=== PATIENT | female | born 1995 | race African-American/Black ===

== ENCOUNTER 2017-01-13 23:31 | Observation (INO) | payer SELFPAY ==
[2017-01-13 23:34] VITALS: BP 127/73
== END 2017-01-14 01:45 | disposition home or self-care (01) ==
LOC: ER 01-14 00:01 → 3 SO LND 01-14 00:02
PROVIDERS: ADMIT Specialist; ATTEND Specialist
DX: O26.893 Other specified pregnancy related conditions, third trimester (principal); R07.9 Chest pain, unspecified; M25.512 Pain in left shoulder; M79.602 Pain in left arm; O62.9 Abnormality of forces of labor, unspecified; Z3A.28 28 weeks gestation of pregnancy
CPT/HCPCS: G0378; G0379

== ENCOUNTER 2017-03-09 04:17 | Inpatient (IN) | payer OTHER ==
[~2017-03-09] VITALS: Ht 165.1 cm; Wt 100.2 kg
[2017-03-09 04:39] LABS: BILIRUBIN,URINE NEGATIVE (NEG); GLUCOSE,URINE NEGATIVE (NEG); NITRITE,URINE NEGATIVE (NEG); PROTEIN,URINE NEGATIVE (NEG-TRACE)
[2017-03-09] MEDS: IV RINGERS,LACTATED 1000ML 1,000 ML IV SCH ×4 (04:43→09:45)
[2017-03-09 04:45] LABS: BARBITURATES NEG (NEG); BENZODIAZEPINES NEG (NEG); CANNABINOIDS NEG (NEG); COCAINE NEG (NEG); METHADONE NEG (NEG); OPIATES NEG (NEG); PHENCYCLIDINE NEG (NEG)
[2017-03-09] MEDS ORDERED: ONDANSETRON PF 4 MG/2 ML VIAL. IV PRN ×2 (04:45→05:45)
[2017-03-09] MEDS ORDERED: fentaNYL PF VIAL 100 MCG/2 ML VIAL IV PRN (04:45)
[2017-03-09] MEDS ORDERED: TERBUTALINE 1 MG/ML VIAL. SQ PRN (04:45)
[2017-03-09] MEDS ORDERED: LIDOCAINE 1% PF 30 ML VIAL. INJ PRN (04:45)
[2017-03-09] MEDS ORDERED: OXYTOCIN 30 UNIT/500 ML PREMIX 500 ML IV PRN ×2 (04:45→11:00)
[2017-03-09] MEDS ORDERED: 0.9 % SODIUM CHLORIDE 10 ML DISP.SYRIN. IV PRN ×2 (04:45→11:00)
[2017-03-09 04:57] LABS: RBC,URINE 0 /HPF (0-2); WBC,URINE OCC /HPF (0-4)
[2017-03-09 04:58] LABS: BACTERIA,URINE FEW /HPF (0-FEW); SQUAMOUS EPITHELIAL CELL,UR FEW /LPF
[2017-03-09 05:21] VITALS: BP 137/67
[2017-03-09 05:28] LABS: HEMATOCRIT 34.2 % (36.0-47.0); HEMOGLOBIN 11.1 g/dL (12.0-15.5); RED BLOOD COUNT 3.79 x10^6/uL (3.50-5.40); WHITE BLOOD COUNT 9.1 x10^3/uL (4.0-11.0)
[2017-03-09] MEDS ORDERED: L&D EPIDURAL CASSETTE 100 ML EP PRN (05:45)
[2017-03-09] MEDS ORDERED: ROPIVacaine 0.2% PF 10 ML VIAL. EPI ONE (05:45)
[2017-03-09] MEDS ORDERED: ePHEDrine PF IN SALINE 50 MG/5 ML DISP.SYRIN IV PRN (05:45)
[2017-03-09] MEDS ORDERED: NALOXONE 0.4 MG/ML VIAL. IV PRN (05:45)
[2017-03-09] MEDS ORDERED: fentaNYL PF VIAL 100 MCG/2 ML VIAL EPI ONE (05:45)
[2017-03-09 05:46] LABS: CALCIUM 8.8 mg/dL (8.5-10.1); CREATININE 0.5 mg/dL (0.6-1.0); GFR 186.7; POTASSIUM 3.9 mmol/L (3.5-5.1)
[2017-03-09 05:49] LABS: ALBUMIN 2.5 g/dL (3.4-5.0); ALBUMIN/GLOBULIN RATIO 0.6 (1.0-1.7); TOTAL BILIRUBIN 0.3 mg/dL (0.2-1.0); TOTAL PROTEIN 6.7 g/dL (6.4-8.2)
[2017-03-09] MEDS ORDERED: L&D EPIDURAL CASSETTE 100 ML EP ONE (05:49)
[2017-03-09] MEDS ORDERED: ROPIVacaine 0.2% IN 0.9%NACL PF 40 MG/20 ML DISP.SYRIN. ONE ×4 (05:50→09:05)
[2017-03-09] MEDS ORDERED: diphenhydrAMINE HCL 25 MG CAPSULE PO PRN (11:00)
[2017-03-09] MEDS ORDERED: ZOLPIDEM 5 MG TABLET. PO PRN (11:00)
[2017-03-09] MEDS ORDERED: PHENYLEPH/MINERAL OIL/PETROLAT RECTAL OINTMENT 28GM TUBE. RC PRN (11:00)
[2017-03-09] MEDS ORDERED: MAGNESIUM HYDROXIDE 2,400 MG/30 ML ORAL.SUSP. PO PRN (11:00)
[2017-03-09] MEDS ORDERED: HYDROcodone/APAP 5/325MG 1 TAB TABLET PO PRN (11:00)
[2017-03-09] MEDS ORDERED: HYDROCORTISONE 1% TOPICAL OINTMENT 30GM TUBE. TP PRN (11:00)
[2017-03-09] MEDS ORDERED: MAG HYDROX/ALUMINUM HYD/SIMETH 30 ML ORAL.SUSP PO PRN (11:00)
[2017-03-09] MEDS ORDERED: SIMETHICONE 80 MG TAB.CHEW PO PRN (11:00)
[2017-03-09] MEDS ORDERED: BENZOCAINE 20% TOPICAL AEROSOL SPRAY 57GM CAN. TP PRN (11:00)
[2017-03-09] MEDS ORDERED: ACETAMINOPHEN 325 MG TABLET. PO PRN (11:00)
--- NOTE | 2017-03-09 11:00 | PDOC ---
VAGINAL DELIVERY DATE DATE: 03/09/17 TIME: 10:58 : 2 Para: 1 EDC: Mar 21, 2017 VAGINAL DELIVERY: VTX PLACENTA: Spontaneous SEX: Male WEIGHT 7/10 Nuchal Cord: No Amniotic Fluid: Clear PAIN: Epidural EPISIOTOMY: No EBL 300cc COMPLICATIONS None CONDITION Stable Signs of Intrauterine Infectio: None Shoulder Dystocia: No DIAGNOSIS TIUP del Problems: REG ATKINS MD Mar 09, 2017 11:00
[2017-03-09] MEDS: IBUPROFEN 800 MG TABLET. PO SCH (13:24)
[2017-03-09] MEDS ORDERED: FERROUS SULFATE 325 MG TABLET. PO SCH (17:00)
[2017-03-09 17:16] VITALS: BP 104/56
[2017-03-09] MEDS: IBUPROFEN 800 MG TABLET. PO PRN (20:03)
[2017-03-09 21:15] VITALS: BP 128/70
[2017-03-10 01:15] VITALS: BP 119/63
[2017-03-10] MEDS: IBUPROFEN 800 MG TABLET. PO PRN (02:26)
[2017-03-10 06:15] VITALS: BP 106/55
[2017-03-10 09:23] LABS: RPR REFLEX Negative (Non Reactive)
[2017-03-10] MEDS: IBUPROFEN 800 MG TABLET. PO SCH ×2 (10:17→20:00)
[2017-03-10 10:25] VITALS: BP 125/70
--- NOTE | 2017-03-10 13:35 | PDOC ---
OB Progress Note Date of Service 03/10/17 Time of Evaluation 1330 Notes Pt. feeling well. No complaints. Lochia minimal. Pain controlled. Lab Laboratory Tests Test 03/09/17 04:30 03/09/17 05:05 03/10/17 06:15 Urine Collection Type Unknown Urine Color Yellow Urine Clarity Clear Urine pH 7.0 Urine Specific [place] 1.015 Urine Protein Negative mg/dL (NEG-TRACE) Urine Glucose (UA) Negative mg/dL (NEG) Urine Ketones (Stick) Negative mg/dL (NEG) Urine Blood Negative (NEG) Urine Nitrite Negative (NEG) Urine Bilirubin Negative (NEG) Urine Urobilinogen Dipstick 1.0 mg/dL (0.2 mg/dL) Urine Leukocyte Esterase Negative (NEG) Urine RBC 0 /HPF (0-2) Urine WBC Occ /HPF (0-4) Urine Squamous Epithelial Cells Few /LPF Urine Bacteria Few /HPF (0-FEW) Urine Mucus Slight /LPF Urine Opiates Screen Neg (NEG) Urine Methadone Screen Neg (NEG) Urine Barbiturates Neg (NEG) Urine Phencyclidine Screen Neg (NEG) Urine Amphetamine/Methamphetamine Neg (NEG) Urine Benzodiazepines Screen Neg (NEG) Urine Cocaine Screen Neg (NEG) Urine Cannabinoids Screen Neg (NEG) Urine Ethyl Alcohol Neg (NEG) White Blood Count 9.1 x10^3/uL (4.0-11.0) Red Blood Count 3.79 x10^6/uL (3.50-5.40) Hemoglobin 11.1 g/dL (12.0-15.5) Hematocrit 34.2 % (36.0-47.0) 30.9 % (36.0-47.0) Mean Corpuscular Volume 90 fL (79-100) Mean Corpuscular Hemoglobin 29 pg (25-35) Mean Corpuscular Hemoglobin Concent 32 g/dL (31-37) Red Cell Distribution Width 15.0 % (11.5-14.5) Platelet Count 139 x10^3/uL (140-400) Sodium Level 139 mmol/L (136-145) Potassium Level 3.9 mmol/L (3.5-5.1) Chloride Level 104 mmol/L (98-107) Carbon Dioxide Level 24 mmol/L (21-32) Anion Gap 11 (6-14) Blood Urea Nitrogen 7 mg/dL (7-20) Creatinine 0.5 mg/dL (0.6-1.0) Estimated GFR (Cockcroft-Gault) 186.7 BUN/Creatinine Ratio 14 (6-20) Glucose Level 73 mg/dL (70-99) Calcium Level 8.8 mg/dL (8.5-10.1) Total Bilirubin 0.3 mg/dL (0.2-1.0) Aspartate Amino Transf (AST/SGOT) 20 U/L (15-37) Alanine Aminotransferase (ALT/SGPT) 19 U/L (14-59) Alkaline Phosphatase 235 U/L (46-116) Total Protein 6.7 g/dL (6.4-8.2) Albumin 2.5 g/dL (3.4-5.0) Albumin/Globulin Ratio 0.6 (1.0-1.7) RPR Titer Additional Testing Negative (Non Reactive) Laboratory Tests Test 03/10/17 06:15 Hematocrit 30.9 % (36.0-47.0) Medications Current Medications Ringer's Solution 1,000 ml @ 125 mls/hr Q8H IV Last administered on 03/09/17 05:50; Start 03/09/17 at 04:30 Sodium Chloride (Normal Saline Flush) 3 ml QSHIFT PRN IV AFTER MEDS AND BLOOD DRAWS; Start 03/09/17 at 04:45 Ringer's Solution 1,000 ml @ 125 mls/hr Q8H IV Last administered on 03/09/17 09:45; Start 03/09/17 at 04:43 Fentanyl Citrate (Fentanyl 2ml Vial) 100 mcg PRN Q30MIN PRN IV Severe pain Last administered on 03/09/17 07:37; Start 03/09/17 at 04:45 Ondansetron HCl (Zofran) 4 mg PRN Q4HRS PRN IV NAUSEA/VOMITING; Start 03/09/17 at 04:45 Terbutaline Sulfate (Brethine) 0.25 mg 1X PRN PRN SQ SEE COMMENTS; Start at 04:45; Stop 03/10/17 at 04:44; Status DC Lidocaine HCl 30 ml 1X PRN PRN INJ SEE COMMENTS; Start 03/09/17 at 04:45; Stop 03/11/17 at 04:44 Oxytocin/Sodium Chloride 500 ml @ 0 mls/hr CONT PRN PRN IV Post delivery bleeding Last administered on 03/09/17 07:37; Start 03/09/17 at 04:45 Ibuprofen (Motrin) 800 mg PRN Q6HRS PRN PO PAIN Last administered on 03/10/17 02:26; Start 03/09/17 at 04:45 Ephedrine Sulfate 10 mg PRN Q2MIN PRN IV IF SBP<90; Start 03/09/17 at 05:45 Naloxone HCl (Narcan) 0.04 mg PRN Q1MIN PRN IV SEE COMMENTS; Start 03/09/17 at 05:45 Fentanyl Citrate (Fentanyl 2ml Vial) 100 mcg 1X ONCE EPI Last administered on 03/09/17 06:07; Start 03/09/17 at 05:45; Stop 03/09/17 at 05:48; Status DC Ropivacaine/ Fentanyl/NS 100 ml @ 14 mls/hr CONT PRN EP PAIN Last administered on 03/09/17 06:13; Start 03/09/17 at 05:45 Ondansetron HCl (Zofran) 4 mg PRN Q6HRS PRN IV NAUSEA/VOMITING; Start 03/09/17 at 05:45 Ropivacaine (Naropin 0.2%) 20 ml 1X ONCE EPI Last administered on 03/09/17 05 :45; Start 03/09/17 at 05:45; Stop 03/09/17 at 05:48; Status DC Ropivacaine/ Fentanyl/NS 100 ml @ As Directed STK-MED ONCE EP ; Start 03/09/17 at 05:49; Stop 03/09/17 at 05:50; Status DC Ropivacaine 40 mg STK-MED ONCE .ROUTE ; Start 03/09/17 at 05:50; Stop 03/09/17 at 05:51; Status DC Ropivacaine 40 mg STK-MED ONCE .ROUTE ; Start 03/09/17 at 06:00; Stop 03/09/17 at 08:43; Status DC Ropivacaine 40 mg STK-MED ONCE .ROUTE ; Start 03/09/17 at 09:05; Stop 03/09/17 at 09:06; Status DC Sodium Chloride (Normal Saline Flush) 10 ml QSHIFT PRN IV AFTER MEDS AND BLOOD DRAWS; Start 03/09/17 at 11:00 Oxytocin/Sodium Chloride 500 ml @ 62.5 mls/hr CONT PRN IV SEE I/O RECORD; Start 03/09/17 at 11:00; Stop 03/09/17 at 18:59; Status DC Acetaminophen (Tylenol) 650 mg PRN Q6HRS PRN PO MILD PAIN / TEMP; Start at 11:00 Ibuprofen (Motrin) 800 mg Q8HRS PO Last administered on 03/10/17t 10:17; Start 03/09/17 at 14:00 Magnesium Hydroxide (Milk Of Magnesia) 2,400 mg PRN DAILY PRN PO CONSTIPATION; Start 03/09/17 at 11:00 Al Hydroxide/Mg Hydroxide (Mylanta Plus Xs) 30 ml PRN Q4HRS PRN PO HEARTBURN / GAS; Start 03/09/17 at 11:00 Simethicone (Gas-X) 80 mg PRN AFTMEALHC PRN PO GAS / BLOATING; Start 03/09/17 at 11:00 Diphenhydramine HCl (Benadryl) 25 mg PRN Q6HRS PRN PO ITCHING; Start 03/09/17 at 11:00 Benzocaine (Americaine) 1 spray PRN QID PRN TP TOPICAL PAIN Last administered on 03/09/17t 13:24; Start 03/09/17 at 11:00 Phenyleph/Shark Oil/Min Oil/Petrol (Preparation H) 1 jami PRN QID PRN RC RECTAL PAIN; Start 03/09/17 at 11:00 Hydrocortisone (Cortaid) 1 jami PRN QID PRN TP RECTAL PAIN; Start 03/09/17 at 11 :00 Ferrous Sulfate (Feosol) 325 mg BIDWMEALS PO ; Start 03/09/17 at 17:00 Zolpidem Tartrate (Ambien) 5 mg PRN QHS PRN PO INSOMNIA, MAY REPEAT X1; Start 03/09/17 at 11:00 Info (Do NOT chart on this placeholder) 1 ea 1X PRN PRN MC SEE COMMENTS; Start 03/09/17 at 11:00 Acetaminophen/ Hydrocodone Bitart (Lortab 5/325) 1 tab PRN Q4HRS PRN PO PAIN; Start 03/09/17 at 11:00; Stop 03/09/17 at 11:12; Status DC Ropivacaine 40 mg STK-MED ONCE .ROUTE ; Start 03/09/17 at 09:00; Stop 03/10/17 at 08:37; Status DC Active Scripts Active Reported No Known Medications Prior To Admisstion (Info) Each 1 Each Exam Abd: soft, non tender, fundus firm Assessment PPD#1 s/p Plan of Care: Continue current Tx, Mgmt TRENT DORSEY Jr, MD Mar 10, 2017 13:35
[2017-03-10 18:25] VITALS: BP 107/61
[2017-03-10 21:20] VITALS: BP 129/81
[2017-03-11 02:00] VITALS: BP 112/66
[2017-03-11] MEDS: IBUPROFEN 800 MG TABLET. PO SCH (07:19)
[2017-03-11 11:20] VITALS: BP 109/66
--- NOTE | 2017-03-11 16:53 | PDOC3 ---
OB DISCHARGE SUMMARY DATE OF ADMISSION: 03/09/17 DATE OF DISCHARGE: 03/11/17 REASON FOR ADMISSION: Onset of labor PROCEDURES: Ultrasound INTRAPARTUM PROCEDURES: Spontanous Vag Deliv PROCEDURES: None OPERATIONS: None DISCHARGE DIAGNOSIS: Term Delivered DISCHARGE INFORMATION: Activity, Diet HOSPITAL COURSE unremarkable CONDITION AT DISCHARGE Stable pt was D/C verbally cause baby had to be transfer to [facility] REG ATKINS MD Mar 11, 2017 16:53
== END 2017-03-11 12:15 | disposition home or self-care (01) | DRG 775 ==
LOC: 3 SO LND 04:17
PROVIDERS: ADMIT Specialist; ATTEND Specialist
PROC: 10E0XZZ Delivery of Products of Conception, External Approach (ICD-10-PCS; principal; 2017-03-09)
PROC: 3E0S3CZ (ICD-10-PCS; 2017-03-09)
PROC: 00HU33Z Insertion of Infusion Device into Spinal Canal, Percutaneous Approach (ICD-10-PCS; 2017-03-09)
DX: O80 Encounter for full-term uncomplicated delivery (principal); Z37.0 Single live birth; Z3A.39 39 weeks gestation of pregnancy
CPT/HCPCS: 36415; 80053; 81001; 85014; 85027; 86593; 86850; 86900; 86901; G0481; J2590; J2795; J3010; J7120

== ENCOUNTER 2017-11-04 11:19 | Emergency (ER) | payer OTHER ==
[2017-11-04 11:45] LABS: URINE HCG POC HCG NEGATIVE (Negative)
[2017-11-04 11:52] LABS: BILIRUBIN,URINE NEGATIVE (NEG); CLARITY,URINE CLEAR; COLOR,URINE YELLOW; GLUCOSE,URINE NEGATIVE (NEG); NITRITE,URINE NEGATIVE (NEG); PH,URINE 6.5; PROTEIN,URINE NEGATIVE (NEG-TRACE)
[2017-11-04 11:57] LABS: BACTERIA,URINE 0 /HPF (0-FEW); RBC,URINE 0 /HPF (0-2); SQUAMOUS EPITHELIAL CELL,UR MOD /LPF
[2017-11-04] MEDS: metroNIDAZOLE 500 MG TABLET PO ×2 (13:49)
[2017-11-04] MEDS: DOXYCYCLINE HYCLATE 100 MG TABLET PO ×2 (13:49)
[2017-11-04] MEDS: cefTRIAXone IM 250 MG VIAL IM ×2 (13:50)
[2017-11-06 22:11] LABS: CHLAMYDIA PROBE Positive (Negative); GC PROBE Negative (Negative)
== END 2017-11-04 14:59 | disposition home or self-care (01) ==
LOC: ER 11:19
DX: N73.9 Female pelvic inflammatory disease, unspecified (principal); N89.8 Other specified noninflammatory disorders of vagina
CPT/HCPCS: 76830; 76856; 81001; 81025; 87491; 87591; 96372; 99285-25; J0696; Q0111

== ENCOUNTER 2017-12-06 11:56 | Emergency (ER) | payer OTHER ==
[2017-12-06 12:18] LABS: URINE HCG POC HCG POSITIVE (Negative)
[2017-12-06 12:29] LABS: BILIRUBIN,URINE NEGATIVE (NEG); CLARITY,URINE CLEAR; COLOR,URINE YELLOW; GLUCOSE,URINE NEGATIVE (NEG); NITRITE,URINE NEGATIVE (NEG); PH,URINE 6.5; PROTEIN,URINE NEGATIVE (NEG-TRACE); UROBILINOGEN,URINE 0.2 mg/dL (0.2 mg/dL)
[2017-12-06 12:33] LABS: SQUAMOUS EPITHELIAL CELL,UR MOD /LPF
[2017-12-06 12:34] LABS: BACTERIA,URINE FEW /HPF (0-FEW); RBC,URINE 0 /HPF (0-2)
[2017-12-06 13:11] LABS: ADD MAN DIFF? NO
[2017-12-06 13:16] LABS: BASO % 1 % (0-3); EOS % 1 % (0-3); HEMATOCRIT 38.8 % (36.0-47.0); HEMOGLOBIN 12.8 g/dL (12.0-15.5); LYMPH # 1.4 x10^3/uL (1.0-4.8); LYMPH % 27 % (24-48); MEAN CORPUSCULAR HEMOGLOBIN 30 pg (25-35); MEAN CORPUSCULAR HGB CONC 33 g/dL (31-37); MEAN CORPUSCULAR VOLUME 90 fL (79-100); MONO # 0.5 x10^3/uL (0.0-1.1); MONO % 9 % (0-9); NEUT # 3.2 x10^3uL (1.8-7.7); NEUT % 63 % (31-73); PLATELET COUNT 209 x10^3/uL (140-400); RED BLOOD COUNT 4.29 x10^6/uL (3.50-5.40); RED CELL DISTRIBUTION WIDTH 12.8 % (11.5-14.5); WHITE BLOOD COUNT 5.2 x10^3/uL (4.0-11.0)
[2017-12-07 14:29] LABS: CHLAMYDIA PROBE Negative (Negative); GC PROBE Negative (Negative)
== END 2017-12-06 14:12 | disposition home or self-care (01) ==
LOC: ER 11:56
DX: O23.599 Infection of other part of genital tract in pregnancy, unspecified trimester (principal); N76.0 Acute vaginitis; B96.89 Other specified bacterial agents as the cause of diseases classified elsewhere; Z3A.00 Weeks of gestation of pregnancy not specified; Z88.5 Allergy status to narcotic agent
CPT/HCPCS: 36415; 76801; 76817; 81001; 81025; 84702; 85025; 87491; 87591; 99285-25; Q0111

== ENCOUNTER 2019-10-16 11:32 | Emergency (ER) | payer OTHER ==
[~2019-10-16] VITALS: Ht 165.1 cm; Wt 92.0 kg
[~2019-10-16 11:32] MED LIST: DOXY100C14 PO; METR500T PO; NAPR-514 PO; OXYC1TAB15 PO
[2019-10-16 12:45] LABS: BILIRUBIN,URINE NEGATIVE (NEG); CLARITY,URINE CLEAR; COLOR,URINE YELLOW; NITRITE,URINE NEGATIVE (NEG); PH,URINE 6.5; PROTEIN,URINE NEGATIVE (NEG-TRACE); UROBILINOGEN,URINE 0.2 mg/dL (0.2 mg/dL)
[2019-10-16 12:55] LABS: BACTERIA,URINE FEW /HPF (0-FEW); RBC,URINE 0 /HPF (0-2); WBC,URINE OCC /HPF (0-4)
[2019-10-16 13:53] VITALS: BP 136/79
[2019-10-16] MEDS ORDERED: METR500T PO (14:09)
--- NOTE | 2019-10-16 14:10 | PHYS DOC ---
Past Medical History Past Medical History: No Pertinent History, Other Additional Past Medical Histor: HEART MURMUR (LUCÍA PANG APRN) Past Surgical History: No Surgical History (LUCÍA PANG APRN) Alcohol Use: None Drug Use: None (LUCÍA PANG APRN) Adult General Chief Complaint Chief Complaint: ABDOMINAL PAIN HPI HPI Patient is a 24 year old female who presents to the ED today complaining of vag inal discharge for 2 days. Patient states the last time she had similar symptoms she had bacterial vaginosis, denies any concerns for STDs. (LUCÍA PANG APRN) Review of Systems Review of Systems Constitutional: Denies fever or chills [] GI: Reports vaginal discharge. Denies abdominal pain, nausea, vomiting, bloody stools or diarrhea [] : Denies dysuria or hematuria [] Musculoskeletal: Denies back pain or joint pain [] Integument: Denies rash or skin lesions [] Neurologic: Denies headache, focal weakness or sensory changes [] All other systems were reviewed and found to be within normal limits, except as documented in this note. (LUCÍA PANG APRN) Allergies Allergies Allergies Coded Allergies Type Severity Reaction Last Updated Verified hydrocodone Allergy Severe difficulty breathing and swallowing 03/09/17 Yes (ROSALIO COON DO) Physical Exam Physical Exam Constitutional: Well developed, well nourished, no acute distress, non-toxic appearance. [] Abdomen: Bowel sounds normal, soft, no tenderness, no masses, no pulsatile masses. [] Pelvic exam External pelvic appears normal, cervix is visualized, closed, nose, no adnexal tenderness, small amount of white discharge in the vaginal vault Skin: Warm, dry, no erythema, no rash. [] Back: No tenderness, no CVA tenderness. [] Extremities: No tenderness, no cyanosis, no clubbing, ROM intact, no edema. [] Neurologic: Alert and oriented X 3, normal motor function, normal sensory function, no focal deficits noted. [] Psychologic: Affect normal, judgement normal, mood normal. [] (LUCÍA PANG APRN) Current Patient Data Vital Signs Vital Signs Date Time Temp Pulse Resp B/P (MAP) Pulse Ox O2 Delivery O2 Flow Rate FiO2 10/16/19 13:53 76 16 136/79 (98) 99 Room Air 10/16/19 12:20 98.1 98.1 (ROSALIO COON DO) Lab Values Laboratory Tests Test 10/16/19 11:45 10/16/19 12:16 Urine Collection Type Unknown Urine Color Yellow Urine Clarity Clear Urine pH 6.5 Urine Specific [place] 1.025 Urine Protein Negative mg/dL (NEG-TRACE) Urine Glucose (UA) Negative mg/dL (NEG) Urine Ketones (Stick) Negative mg/dL (NEG) Urine Blood Negative (NEG) Urine Nitrite Negative (NEG) Urine Bilirubin Negative (NEG) Urine Urobilinogen Dipstick 0.2 mg/dL (0.2 mg/dL) Urine Leukocyte Esterase Negative (NEG) Urine RBC 0 /HPF (0-2) Urine WBC Occ /HPF (0-4) Urine Bacteria Few /HPF (0-FEW) Urine Mucus Mod /LPF Chlamydia DNA Probe Negative (Negative) Neisseria gonorrhoeae DNA Probe Negative (Negative) POC Urine HCG, Qualitative Hcg negative (Negative) Microbiology 10/16/19 Wet Prep - Final, Complete (ROSALIO COON DO) EKG EKG [] (LUCÍA PANG APRN) Radiology/Procedures Radiology/Procedures [] (LUCÍA PANG APRN) Course & Med Decision Making Course & Med Decision Making Pertinent Labs and Imaging studies reviewed. (See chart for details) This is a 24-year-old female patient presenting to the ED today with vaginal discharge. Urine analysis is negative for infection. Wet prep noted for BV, discharge and Flagyl. Follow-up with OB as needed (LUCÍA PANG APRN) Dragon Disclaimer Dragon Disclaimer This electronic medical record was generated, in whole or in part, using a voice recognition dictation system. (LUCÍA PANG APRN) Departure Departure Impression: Primary Impression: Bacterial vaginosis Disposition: HOME, SELF-CARE Condition: STABLE Referrals: NO PCP (PCP) follow up with your OBGYN as needed Patient Instructions: Bacterial Vaginosis, [id number] Additional Instructions: You have bacterial vaginosis, we put you on antibiotics, ensure you complete them. Follow up with the BUSINESS OPERATIONS CONSULTANT in 1-2 weeks. Scripts Metronidazole (FLAGYL) 500 Mg Tablet 1 TAB PO BID, #14 TAB Prov: LUCÍA PANG APRN 10/16/19 Attending Signature Attending Signature I have reviewed the PA/SPINNER [facility] END's note and plan of care. I was available for consultation as needed during the patient's visit in the emergency department. I agree with the clinical impression, plan, and disposition. (ROSALIO COON DO) LUCÍA PANG APRN Oct 16, 2019 14:10 ROSALIO COON DO Oct 20, 2019 01:49
[2019-10-17 20:08] LABS: GC PROBE Negative (Negative)
== END 2019-10-16 14:15 | disposition home or self-care (01) ==
LOC: ER 11:32
DX: N76.0 Acute vaginitis (principal); B96.89 Other specified bacterial agents as the cause of diseases classified elsewhere; Z88.5 Allergy status to narcotic agent
CPT/HCPCS: 81001; 81025; 87491; 87591; 99284; Q0111